=== PATIENT | female | born 1995 | race American Indian/Alaskan Native ===

== ENCOUNTER 2017-05-04 14:36 | Emergency (ER) | payer SELFPAY ==
[2017-05-04 14:47] VITALS: BP 153/65
[2017-05-04] MEDS ORDERED: XYLOCAINE 1% MPF 5 mL INFILTRATI ONE (17:03)
[2017-05-04] MEDS ORDERED: ZITHROMAX PO ONE (17:03)
[2017-05-04] MEDS ORDERED: ROCEPHIN IM ONE (17:03)
--- NOTE | 2017-05-04 17:05 | Emergency Department Report ---
ED Female HPI - General Chief complaint: Urogenital-Female Stated complaint: VAGINAL DISCHARGE Time Seen by Provider: 05/04/17 16:38 Source: patient Mode of arrival: Ambulatory Limitations: No Limitations - History of Present Illness Initial comments: This is a 22 y.o. female presents with vaginal discharge for 2 weeks. Discharge is thick, clear, and odor. She tried douching and symptoms got worse. She is having to wear a pad to hold the discharge because it is heavy. Admits to having unprotected intercourse with one male partner. Denies dysuria, pelvic pain, back pain, frequency, urgency, and fever. MD Complaint: vaginal discharge -: week(s) (2) Severity: moderate Severity scale (0 -10): 5 Improves with: none Worsens with: none Are you Now?: No Last Menstrual Period: 04/19/17 EDC: 01/24/18 Associated Symptoms: vaginal discharge, headaches. denies: vaginal bleeding, abdominal pain, nausea/vomiting, fever/chills, loss of appetite, dysuria, hematuria, rash, seizure, shortness of breath, syncope, weakness - Related Data Sexually active: Yes Previous Rx's Medication Instructions Recorded Last Taken Type Ciprofloxacin HCl [Cipro] 250 mg PO BID #6 tablet 08/01/14 Unknown Rx Doxycycline Monohydrate 100 mg PO BID #28 capsule 08/01/14 Unknown Rx [Doxycycline Monohydrate CAP] Ibuprofen [Motrin 800 MG tab] 800 mg PO TID PRN #30 tablet 08/01/14 Unknown Rx Omeprazole [PriLOSEC] 20 mg PO QDAY #14 capsule. 08/01/14 Unknown Rx metroNIDAZOLE [Metronidazole] 500 mg PO BID 7 Days #14 tablet 05/04/17 Unknown Rx Allergies Allergy/AdvReac Type Severity Reaction Status Date / Time No Known Allergies Allergy Verified 05/04/17 14:44 ED Review of Systems ROS: Stated complaint: VAGINAL DISCHARGE Other details as noted in HPI Constitutional: denies: chills, fever Respiratory: denies: cough, shortness of breath, wheezing Cardiovascular: denies: chest pain, palpitations Gastrointestinal: denies: abdominal pain, nausea, diarrhea Genitourinary: discharge (thick, clear, & odor). denies: urgency, dysuria Skin: denies: rash, lesions Neurological: headache. denies: weakness, paresthesias ED Past Medical Hx - Past Medical History Hx Asthma: Yes (has neb no inhaler) - Social History Smoking Status: Never Smoker Substance Use Type: None - Medications Home Medications: Home Medications Medication Instructions Recorded Confirmed Last Taken Type Ciprofloxacin HCl [Cipro] 250 mg PO BID #6 tablet 08/01/14 Unknown Rx Doxycycline Monohydrate 100 mg PO BID #28 capsule 08/01/14 Unknown Rx [Doxycycline Monohydrate CAP] Ibuprofen [Motrin 800 MG tab] 800 mg PO TID PRN #30 tablet 08/01/14 Unknown Rx Omeprazole [PriLOSEC] 20 mg PO QDAY #14 capsule. 08/01/14 Unknown Rx metroNIDAZOLE [Metronidazole] 500 mg PO BID 7 Days #14 tablet 05/04/17 Unknown Rx ED Physical Exam - General Limitations: No Limitations General appearance: alert, in no apparent distress - Respiratory Respiratory exam: Present: normal lung sounds bilaterally. Absent: respiratory distress - Cardiovascular Cardiovascular Exam: Present: regular rate, normal rhythm, normal heart sounds. Absent: systolic murmur, diastolic murmur, rubs, gallop - GI/Abdominal GI/Abdominal exam: Present: soft, normal bowel sounds - Back Exam Back exam: Present: normal inspection, full ROM. Absent: CVA tenderness (R), CVA tenderness (L) - Neurological Exam Neurological exam: Present: alert, oriented X3, normal gait - Psychiatric Psychiatric exam: Present: normal affect, normal mood - Skin Skin exam: Present: warm, dry, intact, normal color. Absent: rash ED Course Vital Signs 05/04/17 14:45 Temperature 98.9 F Pulse Rate 88 Respiratory 20 Rate Blood Pressure 153/65 O2 Sat by Pulse 100 Oximetry ED Medical Decision Making - Medical Decision Making This is a 22 y.o. female presents with vaginal discharge for 2 weeks. Patient was examined by me. Recent STD exposure. Discussed options of pelvic exam, empirically treating and follow up with Health Department or PCP. Patient request empirical treatment. Treated with azithromycin 1 g po and rocephin 250 mg IM. Given metronidazole 2 g po in ER. Blood Pressure 153/65. Discussed heart healthy diet and encouraged to increase activity daily. Follow up with [facility]. Discharged home in stable condition. Start metronidazole 500 mg po bid x 7 days. Discussed prevention options. F/U with PCP or Health Department. Critical care attestation.: If time is entered above; I have spent that time in minutes in the direct care of this critically ill patient, excluding procedure time. ED Disposition Clinical Impression: Exposure to STD, Elevated blood pressure reading in office without diagnosis of hypertension Disposition: DC- TO HOME OR SELFCARE Is pt being admited?: No Does the pt Need Aspirin: No Condition: Stable Instructions: Sexually Transmitted Diseases (ED), Safe Sex (ED), Heart Healthy Diet (ED), Hypertension (ED) Additional Instructions: Avoid drinking alcohol for 24 hours. Continue safe sexual intercourse. Follow up with Primary Care Provider or health department. Prescriptions: metroNIDAZOLE [Metronidazole] 500 mg PO BID 7 Days #14 tablet Referrals: [facility] [Outside] - 3-5 Days [facility] [Outside] - 3-5 Days [facility] [Outside] - 3-5 Days [facility] [Outside] - 3-5 Days Forms: Work/School Release Form(ED) Time of Disposition: 18:24 Print Language: SETSWANA
== END 2017-05-04 18:47 | disposition home or self-care (01) ==
LOC: ED 14:36
DX: Z20.2 Contact with and (suspected) exposure to infections with a predominantly sexual mode of transmission (principal)
CPT/HCPCS: 96372; 99282; J0696

== ENCOUNTER 2019-01-18 01:57 | Emergency (ER) | payer SELFPAY ==
[2019-01-18 02:07] VITALS: BP 142/71
--- NOTE | 2019-01-18 02:46 | XRay Report ---
CHEST 1 VIEW INDICATION / CLINICAL INFORMATION: Chest Pain. COMPARISON: None available. FINDINGS: SUPPORT DEVICES: None. HEART / MEDIASTINUM: No significant abnormality. LUNGS / PLEURA: No significant pulmonary or pleural abnormality. No pneumothorax. ADDITIONAL FINDINGS: No significant additional findings. IMPRESSION: 1. No acute findings. Signer Name: Catrachita Woodson MD Signed: 01/18/2019 2:42 AM Workstation Name: [id number]
[2019-01-18] MEDS ORDERED: ACETAMINOPHEN 500 MG TAB PO ONE (03:50)
[2019-01-18] MEDS ORDERED: ASPIRIN 325 MG TAB PO ONE (03:50)
[2019-01-18] MEDS ORDERED: predniSONE 20 MG TAB PO ONE (03:50)
[2019-01-18 04:19] LABS: Basophils % (Auto) 0.5 % (0.0-1.8); Eosinophils # (Auto) 0.1 K/mm3 (0.0-0.4); Eosinophils % (Auto) 0.7 % (0.0-4.3); Hematocrit 36.6 % (30.3-42.9); Lymphocytes # (Auto) 1.8 K/mm3 (1.2-5.4); Lymphocytes % (Auto) 25.5 % (13.4-35.0); Mean Corpuscular HGB Conc 33 % (30-34); Mean Corpuscular Volume 84 fl (79-97); Monocytes # (Auto) 0.4 K/mm3 (0.0-0.8); Monocytes % (Auto) 6.1 % (0.0-7.3); Platelet Count 186 K/mm3 (140-440); Red Blood Count 4.36 M/mm3 (3.65-5.03); Red Cell Distribution Width 13.8 % (13.2-15.2)
[2019-01-18 04:47] LABS: Alanine Aminotransferase 12 units/L (7-56); Albumin 4.1 g/dL (3.9-5); BUN/Creatinine Ratio 22; Blood Urea Nitrogen 11 mg/dL (7-17); Calcium 8.9 mg/dL (8.4-10.2); Hemolysis Index 18
--- NOTE | 2019-01-18 04:53 | Emergency Department Report ---
ED Chest Pain HPI - General Chief Complaint: Chest Pain Stated Complaint: CHEST PAIN, DIZZINESS Source: patient, EMS Mode of arrival: Ambulatory Limitations: No Limitations - History of Present Illness Initial Comments: Patient is a 23-year-old -Citizen Of [place] female with no past medical history who presents to the ED with a competent of acute onset persistent substernal chest pain intermittently for the last 1 week. Patient states that the pain is nonradiating, sharp and gets worse with heavy lifting or palpation of the chest wall. Patient admits to performing heavy lifting at work early and that the pain gets worse whenever she is at work due to heavy lifting at work. Patient states that she does not smoke or use any tobacco products and does not use any form of contraception. Patient denies fever, chills, cough, sore throat, epigastric pain, dizziness, shortness of breath, nausea, vomiting, dizziness, change in vision, palpitations or back pain and neck pain. MD Complaint: chest pain, other (Chest wall pain) -: Sudden, week(s) (1) Onset: during exertion, other (Heavy lifting at work) Pain Location: substernal Pain Radiation: none Severity: moderate Severity scale (0 -10): 5 Quality: aching, sharp Consistency: constant Improves With: nothing Worsens With: exertion, inspiration, palpation, movement re: denies: nausea, vomting, diaphoresis, dyspnea, sense of impending doom Other Symptoms: denies: cough, fever, syncope, rash, acid taste in mouth, leg swelling, palpitations, burping, other Treatments Prior to Arrival: none Aspirin use within the Past 7 Days: (0) No - Related Data On Oral Contraceptives: No Previous Rx's Medication Instructions Recorded Last Taken Type Ciprofloxacin HCl [Cipro] 250 mg PO BID #6 tablet 08/01/14 Unknown Rx Doxycycline Monohydrate 100 mg PO BID #28 capsule 08/01/14 Unknown Rx [Doxycycline Monohydrate CAP] Omeprazole [PriLOSEC] 20 mg PO QDAY #14 capsule. 08/01/14 Unknown Rx metroNIDAZOLE [Metronidazole] 500 mg PO BID 7 Days #14 tablet 05/04/17 Unknown Rx Cyclobenzaprine [Flexeril] 10 mg PO TID PRN #24 tablet 01/18/19 Unknown Rx Famotidine [Pepcid] 20 mg PO Q12H #60 tablet 01/18/19 Unknown Rx Ibuprofen [Motrin 800 MG tab] 800 mg PO TID PRN #30 tablet 01/18/19 Unknown Rx Allergies Allergy/AdvReac Type Severity Reaction Status Date / Time No Known Allergies Allergy Verified 05/04/17 14:44 Heart Score - HEART Score History: Slightly suspicious EKG: Normal Age: < 45 Risk factors: No known risk factors Troponin: < normal limit HEART Score: 0 - Critical Actions Critical Actions: 0-3 pts:0.9-1.7%risk of adverse cardiac event.Candidate for discharge ED Review of Systems ROS: Stated complaint: CHEST PAIN, DIZZINESS Other details as noted in HPI Constitutional: denies: chills, fever Eyes: denies: eye pain, eye discharge, vision change ENT: denies: ear pain, throat pain Respiratory: denies: cough, shortness of breath, wheezing Cardiovascular: chest pain (Chest pain, substernal). denies: palpitations, dy spnea on exertion, orthopnea, syncope, paroxysmal nocturnal dyspnea Endocrine: no symptoms reported Gastrointestinal: denies: abdominal pain, nausea, vomiting, diarrhea, hematemesis, hematochezia Genitourinary: denies: urgency, dysuria, frequency, hematuria, discharge Musculoskeletal: myalgia. denies: back pain, joint swelling, arthralgia Skin: denies: rash, lesions Neurological: denies: headache, weakness, paresthesias Psychiatric: denies: anxiety, depression Hematological/Lymphatic: denies: easy bleeding, easy bruising ED Past Medical Hx - Past Medical History Previous Medical History?: Yes Hx Asthma: Yes (has neb no inhaler) - Surgical History Past Surgical History?: No - Social History Smoking Status: Former Smoker Substance Use Type: None - Medications Home Medications: Home Medications Medication Instructions Recorded Confirmed Last Taken Type Ciprofloxacin HCl [Cipro] 250 mg PO BID #6 tablet 08/01/14 Unknown Rx Doxycycline Monohydrate 100 mg PO BID #28 capsule 08/01/14 Unknown Rx [Doxycycline Monohydrate CAP] Omeprazole [PriLOSEC] 20 mg PO QDAY #14 capsule. 08/01/14 Unknown Rx metroNIDAZOLE [Metronidazole] 500 mg PO BID 7 Days #14 tablet 05/04/17 Unknown Rx Cyclobenzaprine [Flexeril] 10 mg PO TID PRN #24 tablet 01/18/19 Unknown Rx Famotidine [Pepcid] 20 mg PO Q12H #60 tablet 01/18/19 Unknown Rx Ibuprofen [Motrin 800 MG tab] 800 mg PO TID PRN #30 tablet 01/18/19 Unknown Rx ED Physical Exam - General Limitations: No Limitations General appearance: alert, in no apparent distress - Head Head exam: Present: atraumatic, normocephalic, normal inspection - Eye Eye exam: Present: normal appearance, PERRL, EOMI Pupils: Present: normal accommodation - ENT ENT exam: Present: normal exam, normal orophraynx, mucous membranes moist, TM's normal bilaterally, normal external ear exam - Neck Neck exam: Present: normal inspection, full ROM. Absent: tenderness, lymphadenopathy - Respiratory Respiratory exam: Present: normal lung sounds bilaterally, chest wall tenderness (Palpable chest wall tenderness). Absent: respiratory distress, wheezes, rales, rhonchi, stridor, accessory muscle use, decreased breath sounds, prolonged expiratory - Cardiovascular Cardiovascular Exam: Present: regular rate, normal rhythm, normal heart sounds. Absent: systolic murmur, diastolic murmur, rubs, gallop - GI/Abdominal GI/Abdominal exam: Present: soft, normal bowel sounds. Absent: tenderness, guarding, rebound, hyperactive bowel sounds - Extremities Exam Extremities exam: Present: normal inspection, full ROM, normal capillary refill - Back Exam Back exam: Present: normal inspection, full ROM. Absent: muscle spasm, paraspinal tenderness - Neurological Exam Neurological exam: Present: alert, oriented X3, CN II-XII intact, normal gait, reflexes normal - Psychiatric Psychiatric exam: Present: normal affect, normal mood - Skin Skin exam: Present: warm, dry, intact, normal color. Absent: rash ED Course Vital Signs 01/18/19 02:02 Temperature 98.4 F Pulse Rate 75 Respiratory 20 Rate Blood Pressure 142/71 O2 Sat by Pulse 98 Oximetry LALA score - Lala Score Age > 65: (0) No Aspirin use within the Past 7 Days: (0) No 3 or more CAD Risk Factors: (0) No 2 or more Angina events in past 24 hrs: (0) No Known CAD with more than 50% Stenosis: (0) No Elevated Cardiac Markers: (0) No ST Deviation Greater than 0.5mm: (0) No LALA Score: 0 ED Medical Decision Making - Lab Data Result diagrams: 01/18/19 04:01 01/18/19 04:01 - EKG Data 01/18/19 04:54 EKG shows sinus arrhythmia with ventricular rate of 72 bpm, no ST or T-wave abnormality. - Radiology Data Radiology results: report reviewed, image reviewed Chest x-ray shows no acute cardiopulmonary abnormalities or pneumonitis - Medical Decision Making This is a 23-year-old female with no past medical history who presented to the ED with acute onset persistent substernal chest pain for one week, worse with exertion, palpitation or heavy lifting as happens at her workplace. In the ED, patient is alert and oriented 3 and is not in distress. Patient was treated for pain in the ED and EKG shows sinus arrhythmia with ventricular rate of 72 bpm, no ST or T-wave abnormalities. Chest x-ray shows no acute cardiopulmonary abnormalities or pneumonitis. Lab test results were reviewed and on actionable. Patient symptoms are likely due to costochondritis based on the fact that the patient performs heavy lifting at work, and that the chest pain is reproducible by palpation of the chest wall during the physical exam. The patient's Heart Score is 0, and LALA score is also 0. On reevaluation, patient's pain is well controlled with medications. Patient was discharged home on anti-inflammatory pain medications with muscle relaxants prescriptions, and patient was discharged home and advised to follow-up with a primary care physician in 5-7 days for reevaluation or return to the ED immediately if symptoms get worse. - Differential Diagnosis ACS; Costochondritis; Muscle strain of chest; GERD; Pneumonia Critical care attestation.: If time is entered above; I have spent that time in minutes in the direct care of this critically ill patient, excluding procedure time. ED Disposition Clinical Impression: Acute chest wall pain, Acute costochondritis, Muscle strain of anterior chest wall Disposition: DC-01 TO HOME OR SELFCARE Is pt being admited?: No Does the pt Need Aspirin: No Condition: Stable Instructions: Chest Pain (ED), Muscle Strain (ED), Costochondritis (ED) Additional Instructions: Take medications with food, drink plenty of fluids and follow-up with your primary care physician in 5-7 days for reevaluation. Return to the ED immediately if symptoms get worse. Prescriptions: Cyclobenzaprine [Flexeril] 10 mg PO TID PRN #24 tablet PRN Reason: Muscle Spasm Ibuprofen [Motrin 800 MG tab] 800 mg PO TID PRN #30 tablet PRN Reason: Pain Famotidine [Pepcid] 20 mg PO Q12H #60 tablet Referrals: PRIMARY CARE,MD [Primary Care Provider] - 3-5 Days Forms: Work/School Release Form(ED) Time of Disposition: 05:01 Print Language: [place] LE[place]
[2019-01-18 05:00] LABS: Bacteria,Urine 2+ /HPF (Negative); Bilirubin,Urine NEG (Negative); Blood,Urine NEG (Negative); Color,Urine Yellow (Yellow); Protein,Urine <15 mg/dL mg/dL (Negative)
== END 2019-01-18 05:10 | disposition home or self-care (01) ==
LOC: ED 01:57
DX: S29.011A Strain of muscle and tendon of front wall of thorax, initial encounter (principal); M94.0 Chondrocostal junction syndrome [Tietze]; J45.909 Unspecified asthma, uncomplicated; Z87.891 Personal history of nicotine dependence; X50.0XXA Overexertion from strenuous movement or load, initial encounter; Y93.89 Activity, other specified; Y92.89 Other specified places as the place of occurrence of the external cause; Y99.8 Other external cause status
CPT/HCPCS: 36415; 71045; 80053; 81001; 84484; 84703; 85025; 87076; 87086; 87186; 93005; 93010

== ENCOUNTER 2019-07-01 02:39 | Emergency (ER) | payer SELFPAY ==
[2019-07-01 03:17] LABS: HCG Qualitative,Urine Negative (Negative)
[2019-07-01 03:21] LABS: Bacteria,Urine 4+ /HPF (Negative); Bilirubin,Urine NEG (Negative); Blood,Urine LG (Negative); Color,Urine Yellow (Yellow); Mucus,Urine 1+ /HPF
--- NOTE | 2019-07-01 03:42 | Emergency Department Report ---
ED Female HPI - General Chief complaint: Urogenital-Female Stated complaint: VAGINAL DISCOMFORT Time Seen by Provider: 07/01/19 03:22 Source: patient Mode of arrival: Ambulatory Limitations: No Limitations - History of Present Illness Initial comments: Patient is a 24-year-old female presents emergency room with complaints of vaginal discomfort that began 2 days ago. She has associated thick, clear vaginal discharge. She denies any dysuria, nausea, vomiting, diarrhea, fever. She states she is sexually active and does not use protection. She states her STD history is trichomonas and chlamydia which she received treatment for in the past. She denies any allergies to medications. She denies any other past medical history. She states her last menstrual cycle was 06/15/2019. - Related Data Previous Rx's Medication Instructions Recorded Last Taken Type Ciprofloxacin HCl [Cipro] 250 mg PO BID #6 tablet 08/01/14 Unknown Rx Doxycycline Monohydrate 100 mg PO BID #28 capsule 08/01/14 Unknown Rx [Doxycycline Monohydrate CAP] Omeprazole [PriLOSEC] 20 mg PO QDAY #14 capsule. 08/01/14 Unknown Rx metroNIDAZOLE [Metronidazole] 500 mg PO BID 7 Days #14 tablet 05/04/17 Unknown Rx Cyclobenzaprine [Flexeril] 10 mg PO TID PRN #24 tablet 01/18/19 Unknown Rx Famotidine [Pepcid] 20 mg PO Q12H #60 tablet 01/18/19 Unknown Rx Ibuprofen [Motrin 800 MG tab] 800 mg PO TID PRN #30 tablet 01/18/19 Unknown Rx cephALEXin [Keflex] 500 mg PO BID 7 Days #14 capsule 07/01/19 Unknown Rx Allergies Allergy/AdvReac Type Severity Reaction Status Date / Time No Known Allergies Allergy Verified 05/04/17 14:44 ED Review of Systems ROS: Stated complaint: VAGINAL DISCOMFORT Other details as noted in HPI Comment: All other systems reviewed and negative ED Past Medical Hx - Past Medical History Previous Medical History?: Yes Hx Asthma: Yes (has neb no inhaler) Additional medical history: Anemia - Surgical History Past Surgical History?: No - Social History Smoking Status: Never Smoker - Medications Home Medications: Home Medications Medication Instructions Recorded Confirmed Last Taken Type Ciprofloxacin HCl [Cipro] 250 mg PO BID #6 tablet 08/01/14 Unknown Rx Doxycycline Monohydrate 100 mg PO BID #28 capsule 08/01/14 Unknown Rx [Doxycycline Monohydrate CAP] Omeprazole [PriLOSEC] 20 mg PO QDAY #14 capsule. 08/01/14 Unknown Rx metroNIDAZOLE [Metronidazole] 500 mg PO BID 7 Days #14 tablet 05/04/17 Unknown Rx Cyclobenzaprine [Flexeril] 10 mg PO TID PRN #24 tablet 01/18/19 Unknown Rx Famotidine [Pepcid] 20 mg PO Q12H #60 tablet 01/18/19 Unknown Rx Ibuprofen [Motrin 800 MG tab] 800 mg PO TID PRN #30 tablet 01/18/19 Unknown Rx cephALEXin [Keflex] 500 mg PO BID 7 Days #14 capsule 07/01/19 Unknown Rx ED Physical Exam - General Limitations: No Limitations General appearance: alert, in no apparent distress - Head Head exam: Present: atraumatic, normocephalic - Eye Eye exam: Present: normal appearance - ENT ENT exam: Present: mucous membranes moist - Respiratory Respiratory exam: Present: normal lung sounds bilaterally. Absent: respiratory distress, wheezes, rales, rhonchi, stridor, chest wall tenderness, accessory muscle use, decreased breath sounds, prolonged expiratory - Cardiovascular Cardiovascular Exam: Present: regular rate, normal rhythm, normal heart sounds. Absent: systolic murmur, diastolic murmur, rubs, gallop - GI/Abdominal GI/Abdominal exam: Present: soft, normal bowel sounds. Absent: distended, tenderness, guarding, rebound, rigid - External exam: Present: normal external exam. Absent: erythema, swelling, lesions, lacerations, ecchymosis, bleeding Speculum exam: Present: vaginal discharge (clear, frothy), cervical discharge (clear, frothy), other (academic interventionist: JONY hernandez). Absent: erythema, vaginal bleeding, foreign body, tissue, laceration Bi-manual exam: Present: normal bi-manual exam. Absent: cervical motion tendernes, adnexal tenderness, adnexal mass - Neurological Exam Neurological exam: Present: alert, oriented X3 - Psychiatric Psychiatric exam: Present: normal affect, normal mood - Skin Skin exam: Present: warm, dry, intact ED Course Vital Signs 07/01/19 07/01/19 07/01/19 02:51 02:56 04:27 Temperature 98.5 F 98.5 F 98.2 F Pulse Rate 87 87 80 Respiratory 20 20 19 Rate Blood Pressure 113/41 Blood Pressure 113/41 110/50 [Left] O2 Sat by Pulse 100 100 98 Oximetry ED Medical Decision Making - Lab Data Lab Results 07/01/19 Range/Units 03:09 Urine Color Yellow (Yellow) Urine Turbidity Slightly-cloudy (Clear) Urine pH 6.0 (5.0-7.0) Ur Specific [place] 1.025 (1.003-1.030) Urine Protein 30 mg/dl (Negative) mg/dL Urine Glucose (UA) Neg (Negative) mg/dL Urine Ketones Neg (Negative) mg/dL Urine Blood Lg (Negative) Urine Nitrite Neg (Negative) Ur Reducing Substances Not Reportable Urine Bilirubin Neg (Negative) Urine Ictotest Not Reportable Urine Urobilinogen 2.0 (<2.0) mg/dL Ur Leukocyte Esterase Mod (Negative) Urine WBC (Auto) 96.0 H (0.0-6.0) /HPF Urine RBC (Auto) 35.0 (0.0-6.0) /HPF U Epithel Cells (Auto) 8.0 (0-13.0) /HPF Urine Bacteria (Auto) 4+ (Negative) /HPF Urine Mucus 1+ /HPF Urine HCG, Qual Negative (Negative) - Medical Decision Making Patient is a 24-year-old female presents emergency room with complaints of vaginal discomfort that began 2 days ago. She has associated thick, clear vaginal discharge. She denies any dysuria, nausea, vomiting, diarrhea, fever. She states she is sexually active and does not use protection. She states her STD history is trichomonas and chlamydia which she received treatment for in the past. She denies any allergies to medications. She denies any other past medical history. She states her last menstrual cycle was 06/15/2019. Vitals are normal. UA shows blood cells and leukocyte esterase, could be secondary to STD versus UTI. Pelvic exam performed with frothy, cleared discharge present, no CMT, no adnexal tenderness, academic interventionist: JONY Hernandez. No abdominal tenderness to palpation. Wet prep is negative. Gonorrhea/chlamydia swab sent. Patient prophylactically treated for GC with ceftriaxone and azithromycin. Patient given prescription for Keflex. advised pt Please take medication as prescribed. Increase your water intake. Do not engage in sexual intercourse for 2 weeks. Please have any partner tested and treated as well. Please go to the health department or another clinic for a full STD panel. 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 Return to the emergency room for any new or worsening symptoms. - Differential Diagnosis UTI, STD, bacterial vaginosis, yeast, trichomonas, PID Critical care attestation.: If time is entered above; I have spent that time in minutes in the direct care of this critically ill patient, excluding procedure time. ED Disposition Clinical Impression: Vaginal discomfort, Vaginal discharge UTI (urinary tract infection) Qualifiers: Urinary tract infection type: acute cystitis Hematuria presence: with hematuria Qualified Code(s): N30.01 - Acute cystitis with hematuria Disposition: TO HOME OR SELFCARE Is pt being admited?: No Does the pt Need Aspirin: No Condition: Stable Instructions: Sexually Transmitted Diseases (ED), Safe Sex (ED), Urinary Tract Infection in Women (ED) Additional Instructions: Please take medication as prescribed. Increase your water intake. Do not engage in sexual intercourse for 2 weeks. Please have any partner tested and treated as well. Please go to the health department or another clinic for a full STD panel. 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 Return to the emergency room for any new or worsening symptoms. Prescriptions: cephALEXin [Keflex] 500 mg PO BID 7 Days #14 capsule Referrals: [facility] [Outside] - 3-5 Days [facility] [Provider Group] - 3-5 Days Time of Disposition: 04:15 Print Language: TURKISH
[2019-07-01] MEDS ORDERED: LIDOCAINE-MPF (1%) 10 MG/1 ML VIAL 5 ML INFILTRATI ONE (03:51)
[2019-07-01] MEDS ORDERED: AZITHROMYCIN 1 GM ORAL PWDR PACKET PO ONE (03:51)
[2019-07-01 04:28] VITALS: BP 110/50
== END 2019-07-01 04:28 | disposition home or self-care (01) ==
LOC: ED 02:39
DX: N89.8 Other specified noninflammatory disorders of vagina (principal); N39.0 Urinary tract infection, site not specified; J45.909 Unspecified asthma, uncomplicated; D64.9 Anemia, unspecified; Z79.899 Other long term (current) drug therapy
CPT/HCPCS: 81001; 81025; 87086; 87210; 87591; 96372; 99284; J0696